=== PATIENT | female | born 1950 | race Caucasian/White ===

== ENCOUNTER 2018-12-22 05:43 | Emergency (ER) | payer BC ==
[~2018-12-22] VITALS: Ht 157.5 cm; Wt 49.0 kg
[2018-12-22 05:50] VITALS: BP 144/70
--- NOTE | 2018-12-22 05:50 | NUR ---
68 Y/O F PRESENTED TO ED WITH C/O GREEN DIARRHEA X2 DAYS. AAOX4. PER PT "I BELIEVE THIS DIARRHEA IS FROM A BACTERIAL INFECTION." NAUESA AND VOMITTING ONCE, 12/21/18. DENIES PAIN. PER PT TOOK IMMODIUM WITH NO RELIEF. BOWEL SOUNDS PRESENT X4 QUADRANTS. BEDRAIL X1 UP. BED IN LOWEST POSTION. ERMD NOTIFIED. WILL CONTINUE TO MONITOR.
--- NOTE | 2018-12-22 05:51 | NUR ---
PT AMBULATED TO ER BED 7
[2018-12-22] MEDS ORDERED: NACL 0.9% 1,000 ML IV ONE (06:10)
[2018-12-22] MEDS ORDERED: LOPERAMIDE 2 MG CAP PO ONE (06:10)
--- NOTE | 2018-12-22 06:15 | NUR ---
PT AMBULATED TO RESTROOM. STEADY GAIT.
--- NOTE | 2018-12-22 06:46 | NUR ---
ERMD AT BEDSIDE
[2018-12-22] MEDS ORDERED: DIPHENOXYLATE /ATROPINE 2.5 MG TAB PO ONE (06:50)
[2018-12-22] MEDS ORDERED: metroNIDAZOLE 250 MG TAB PO ONE (06:50)
[2018-12-22 06:58] LABS: BASOPHILS % (AUTO) 0.5 % (0.0-2.0); EOSINOPHILS # (AUTO) 0.1 K/uL (0-0.4); EOSINOPHILS % (AUTO) 1.7 % (0.0-4.0); HEMATOCRIT 40.5 % (36-48); HEMOGLOBIN 13.7 g/dL (12.0-16.0); LYMPHOCYTES # (AUTO) 0.8 K/uL (2.5-16.5); LYMPHOCYTES % (AUTO) 16.9 % (20.5-51.1); MEAN CORPUSCULAR HEMOGLOBIN 31 pg (27-31); MEAN CORPUSCULAR HGB CONC 34 g/dL (33-37); MEAN CORPUSCULAR VOLUME 92.4 fL (80-94); MONOCYTES # (AUTO) 0.5 K/uL (0.8-1.0); MONOCYTES % (AUTO) 10.6 % (1.7-9.3); NEUTROPHILS # (AUTO) 3.5 K/uL (1.8-7.7); NEUTROPHILS % (AUTO) 70.3 % (42.2-75.2); PLATELET COUNT (AUTO) 177 K/uL (140-450); RED BLOOD CELL COUNT(AUTO) 4.39 MIL/uL (4.20-5.40); RED CELL DISTRIBUTION WIDTH 12.9 % (11.6-13.7)
--- NOTE | 2018-12-22 07:19 | NUR ---
REPORT GIVEN TO GRACIA REAL. TRANSFER OF CARE AT THIS TIME.
[2018-12-22 07:37] LABS: ALBUMIN 3.5 g/dL (3.4-5.0); ANION GAP 16.4 (8-16); CARBON DIOXIDE 25.2 mmol/L (21-32); POTASSIUM 4.6 mmol/L (3.5-5.1); TOTAL BILIRUBIN 0.3 mg/dL (0.0-1.0)
[2018-12-22 07:49] VITALS: BP 133/71
--- NOTE | 2018-12-22 07:51 | NUR ---
Patient discharged with v/s stable. Written and verbal after care instructions given and explained. Patient alert, oriented and verbalized understanding of instructions. Ambulatory with steady gait. All questions addressed prior to discharge. ID band removed. Patient advised to follow up with PMD. Rx of LOMOTIL,FLAGYL given. Patient educated on indication of medication including possible reaction and side effects. Opportunity to ask questions provided and answered.
== END 2018-12-22 07:51 | disposition home or self-care (01) ==
LOC: MED 05:43
DX: A09 Infectious gastroenteritis and colitis, unspecified (principal)
CPT/HCPCS: 36415; 80053; 85025; 96360; 99283; J7030; 96361

== ENCOUNTER 2020-03-18 21:30 | Emergency (ER) | payer BC, OTHER ==
[~2020-03-18] VITALS: Ht 160 cm; Wt 49.4 kg
[2020-03-18 21:32] VITALS: BP 209/99
[2020-03-18] MEDS ORDERED: LORazepam 2 MG/ML VIAL IVP ONE (21:45)
[2020-03-18] MEDS ORDERED: cloNIDine 0.1 MG TAB PO ONE (21:45)
[2020-03-18 22:11] LABS: BASOPHILS # (AUTO) 0.1 K/uL (0.00-0.22); BASOPHILS % (AUTO) 0.7 % (0.0-2.0); EOSINOPHILS # (AUTO) 0.1 K/uL (0-0.4); EOSINOPHILS % (AUTO) 1.9 % (0.0-4.0); HEMATOCRIT 40.4 % (36-48); HEMOGLOBIN 13.6 g/dL (12.0-16.0); LYMPHOCYTES # (AUTO) 1.5 K/uL (2.5-16.5); LYMPHOCYTES % (AUTO) 20.6 % (20.5-51.1); MEAN CORPUSCULAR HEMOGLOBIN 31 pg (27-31); MEAN CORPUSCULAR HGB CONC 34 g/dL (33-37); MEAN CORPUSCULAR VOLUME 92.4 fL (80-94); MONOCYTES # (AUTO) 0.6 K/uL (0.8-1.0); MONOCYTES % (AUTO) 8.5 % (1.7-9.3); NEUTROPHILS % (AUTO) 68.3 % (42.2-75.2); PLATELET COUNT (AUTO) 177 K/uL (140-450); RED BLOOD CELL COUNT(AUTO) 4.37 MIL/uL (4.20-5.40); RED CELL DISTRIBUTION WIDTH 12.5 % (11.6-13.7); WHITE BLOOD COUNT (AUTO) 7.3 K/uL (4.8-10.8)
[2020-03-18 22:28] LABS: ANION GAP 13.8 (8-16); CARBON DIOXIDE 27.1 mmol/L (21-32); CREATININE 1.2 mg/dL (0.6-1.3); POTASSIUM 3.9 mmol/L (3.5-5.1); TOTAL BILIRUBIN 0.4 mg/dL (0.0-1.0)
[2020-03-19 00:23] VITALS: BP 129/94
== END 2020-03-19 00:23 | disposition home or self-care (01) ==
LOC: MED 21:30
DX: K90.0 Celiac disease (principal); E87.1 Hypo-osmolality and hyponatremia; N28.1 Cyst of kidney, acquired; I10 Essential (primary) hypertension
CPT/HCPCS: 36415; 70450; 71045; 74176; 80053; 83880; 84484; 85025; 96374; 99285; J2060; Q0092

== ENCOUNTER 2020-03-28 17:05 | Emergency (ER) | payer BC, OTHER ==
[~2020-03-28] VITALS: Ht 157.5 cm; Wt 46.7 kg
[2020-03-28 17:15] VITALS: BP 163/65
[2020-03-28] MEDS ORDERED: NACL 0.9% 1,000 ML IV ONE ×2 (17:20→17:50)
[2020-03-28] MEDS ORDERED: SIMETHICONE 40 MG/0.6 ML PO ONE (17:55)
[2020-03-28 17:59] LABS: BASOPHILS # (AUTO) 0.1 K/uL (0.00-0.22); BASOPHILS % (AUTO) 0.8 % (0.0-2.0); EOSINOPHILS # (AUTO) 0.1 K/uL (0-0.4); EOSINOPHILS % (AUTO) 2.1 % (0.0-4.0); HEMATOCRIT 38.7 % (36-48); HEMOGLOBIN 12.8 g/dL (12.0-16.0); LYMPHOCYTES # (AUTO) 1.6 K/uL (2.5-16.5); LYMPHOCYTES % (AUTO) 23.1 % (20.5-51.1); MEAN CORPUSCULAR HEMOGLOBIN 31 pg (27-31); MEAN CORPUSCULAR HGB CONC 33 g/dL (33-37); MEAN CORPUSCULAR VOLUME 93.2 fL (80-94); MONOCYTES # (AUTO) 0.6 K/uL (0.8-1.0); MONOCYTES % (AUTO) 8.3 % (1.7-9.3); NEUTROPHILS # (AUTO) 4.6 K/uL (1.8-7.7); NEUTROPHILS % (AUTO) 65.7 % (42.2-75.2); PLATELET COUNT (AUTO) 177 K/uL (140-450); RED BLOOD CELL COUNT(AUTO) 4.16 MIL/uL (4.20-5.40); RED CELL DISTRIBUTION WIDTH 12.6 % (11.6-13.7)
[2020-03-28 18:14] LABS: BILIRUBIN,URINE NEGATIVE (NEGATIVE); BLOOD, URINE NEGATIVE (NEGATIVE); LEUKOCYTE ESTERASE ,URINE NEGATIVE (NEGATIVE); NITRITE, URINE NEGATIVE (NEGATIVE); PH,URINE 5.5 (5.0-9.0); UGLUCOSE NEGATIVE (NEGATIVE)
[2020-03-28 18:15] LABS: APPEARANCE,URINE CLEAR (CLEAR); COLOR,URINE STRAW (YELLOW)
[2020-03-28 18:15] LABS: ALBUMIN 3.6 g/dL (3.4-5.0); ANION GAP 16.4 (8-16); CARBON DIOXIDE 22.4 mmol/L (21-32); POTASSIUM 3.8 mmol/L (3.5-5.1); TOTAL BILIRUBIN 0.3 mg/dL (0.0-1.0)
[2020-03-28 19:02] VITALS: BP 145/62
== END 2020-03-28 19:03 | disposition home or self-care (01) ==
LOC: MED 17:05
DX: E86.0 Dehydration (principal); R19.7 Diarrhea, unspecified; I10 Essential (primary) hypertension; K90.0 Celiac disease; N28.1 Cyst of kidney, acquired; Z91.018 Allergy to other foods; Z88.0 Allergy status to penicillin
CPT/HCPCS: 36415; 80053; 81003; 83690; 85025; 96360; 96361; 99283; J7030

== ENCOUNTER 2020-04-02 13:55 | Emergency (ER) | payer BC ==
[~2020-04-02] VITALS: Ht 170.2 cm; Wt 63.5 kg
--- NOTE | 2020-04-02 13:56 | NUR ---
PATIENT BIBA TO BED 7 AT THIS TIME.
[2020-04-02 14:01] VITALS: BP 167/87
--- NOTE | 2020-04-02 14:30 | NUR ---
PT ALERT AND AWAKE, BREATHING EVEN AND UNLABORED. PT ON PHONE
[2020-04-02 14:40] LABS: BASOPHILS % (AUTO) 0.3 % (0.0-2.0); EOSINOPHILS # (AUTO) 0.1 K/uL (0-0.4); HEMATOCRIT 40.6 % (36-48); HEMOGLOBIN 13.4 g/dL (12.0-16.0); LYMPHOCYTES # (AUTO) 1.5 K/uL (2.5-16.5); LYMPHOCYTES % (AUTO) 16.9 % (20.5-51.1); MEAN CORPUSCULAR HEMOGLOBIN 31 pg (27-31); MEAN CORPUSCULAR HGB CONC 33 g/dL (33-37); MEAN CORPUSCULAR VOLUME 92.8 fL (80-94); MONOCYTES # (AUTO) 0.5 K/uL (0.8-1.0); MONOCYTES % (AUTO) 5.5 % (1.7-9.3); NEUTROPHILS # (AUTO) 6.6 K/uL (1.8-7.7); NEUTROPHILS % (AUTO) 76.3 % (42.2-75.2); PLATELET COUNT (AUTO) 184 K/uL (140-450); RED BLOOD CELL COUNT(AUTO) 4.38 MIL/uL (4.20-5.40); RED CELL DISTRIBUTION WIDTH 12.9 % (11.6-13.7); WHITE BLOOD COUNT (AUTO) 8.7 K/uL (4.8-10.8)
[2020-04-02] MEDS: NACL 0.9% 1,000 ML IV ONE (15:02)
[2020-04-02] MEDS: KETOROLAC 30 MG/ML VIAL IVP ONE (15:03)
[2020-04-02] MEDS: ONDANSETRON 4 MG/2 ML VIAL IVP ONE (15:03)
[2020-04-02 15:19] LABS: ALBUMIN 3.7 g/dL (3.4-5.0); CARBON DIOXIDE 24.4 mmol/L (21-32); CREATININE 1.1 mg/dL (0.6-1.3); POTASSIUM 4.4 mmol/L (3.5-5.1); TOTAL BILIRUBIN 0.4 mg/dL (0.0-1.0)
[2020-04-02 15:22] LABS: COLOR,URINE YELLOW (YELLOW)
[2020-04-02 15:23] LABS: APPEARANCE,URINE HAZY (CLEAR); BILIRUBIN,URINE NEGATIVE (NEGATIVE); BLOOD, URINE NEGATIVE (NEGATIVE); LEUKOCYTE ESTERASE ,URINE 1+ (NEGATIVE); NITRITE, URINE NEGATIVE (NEGATIVE); UGLUCOSE NEGATIVE (NEGATIVE)
[2020-04-02 15:43] LABS: RBC,URINE NONE SEEN /HPF (0-5)
[2020-04-02 15:44] LABS: WBC,URINE 0-5 /HPF (0-5)
--- NOTE | 2020-04-02 15:48 | NUR ---
ERMD AT BEDSIDE OF PT
[2020-04-02] MEDS: HYDROcodone/APAP 5/325 MG 1 TAB TAB PO ONE (15:54)
[2020-04-02 16:04] VITALS: BP 164/66
--- NOTE | 2020-04-02 16:04 | NUR ---
Patient discharged with v/s stable. Written and verbal after care instructions about flank pain and uti given and explained. Patient alert, oriented and verbalized understanding of instructions. Ambulatory with steady gait. All questions addressed prior to discharge. ID band removed. Patient advised to follow up with PMD. Rx of norco, ciprofoxacin given. Patient educated on indication of medication including possible reaction and side effects. Opportunity to ask questions provided and answered.
== END 2020-04-02 16:04 | disposition home or self-care (01) ==
LOC: MED 13:55
DX: K90.0 Celiac disease (principal); N39.0 Urinary tract infection, site not specified; I10 Essential (primary) hypertension; Z88.0 Allergy status to penicillin; Z91.018 Allergy to other foods
CPT/HCPCS: 36415; 80053; 81001; 85025; 87086; 93005; 96361; 96374; 96375; 99284; J1885; J2405; J7030

== ENCOUNTER 2020-05-24 09:09 | Emergency (ER) | payer BC, OTHER ==
[~2020-05-24] VITALS: Ht 160 cm; Wt 47.6 kg
[2020-05-24 09:12] VITALS: BP 121/52
--- NOTE | 2020-05-24 09:17 | NUR ---
69 YO FEMALE BIBA AMBULANCE CO ATIVAN WITHDRAWL. STATES THAT SHE WAS GIVEN ATIVAN DT HAVING A CYST ON HER KIDNEY DRAINED. C/O SHAKINESS, NAUSEA. LAST TOOK AN ATIVAN LAST NIGHT. PMH- HTN ALLERGIES- GLUTEN
--- NOTE | 2020-05-24 09:22 | NUR ---
EKG COMPLETED PER ORDERS
--- NOTE | 2020-05-24 09:31 | NUR ---
RAD AT BEDSIDE
--- NOTE | 2020-05-24 09:37 | NUR ---
LAB AT BEDSIDE
[2020-05-24 10:03] LABS: BASOPHILS % (AUTO) 0.8 % (0.0-2.0); EOSINOPHILS # (AUTO) 0.1 K/uL (0-0.4); EOSINOPHILS % (AUTO) 2.2 % (0.0-4.0); HEMATOCRIT 37.6 % (36-48); HEMOGLOBIN 12.6 g/dL (12.0-16.0); LYMPHOCYTES # (AUTO) 1.1 K/uL (2.5-16.5); LYMPHOCYTES % (AUTO) 21.5 % (20.5-51.1); MEAN CORPUSCULAR HEMOGLOBIN 31 pg (27-31); MEAN CORPUSCULAR HGB CONC 34 g/dL (33-37); MEAN CORPUSCULAR VOLUME 93.3 fL (80-94); MONOCYTES # (AUTO) 0.3 K/uL (0.8-1.0); MONOCYTES % (AUTO) 6.5 % (1.7-9.3); NEUTROPHILS # (AUTO) 3.5 K/uL (1.8-7.7); PLATELET COUNT (AUTO) 167 K/uL (140-450); RED BLOOD CELL COUNT(AUTO) 4.03 MIL/uL (4.20-5.40); RED CELL DISTRIBUTION WIDTH 12.9 % (11.6-13.7)
[2020-05-24 10:19] LABS: ALBUMIN 3.4 g/dL (3.4-5.0); ANION GAP 9.7 (8-16); CARBON DIOXIDE 28.8 mmol/L (21-32); POTASSIUM 4.5 mmol/L (3.5-5.1); TOTAL BILIRUBIN 0.6 mg/dL (0.0-1.0)
--- NOTE | 2020-05-24 11:07 | NUR ---
PT LEFT WITHOUT DC INSTRUCTIONS.
== END 2020-05-24 11:07 | disposition home or self-care (01) ==
LOC: MED 09:09
DX: F41.9 Anxiety disorder, unspecified (principal); K90.41 Non-celiac gluten sensitivity; I10 Essential (primary) hypertension; K21.9 Gastro-esophageal reflux disease without esophagitis; N28.9 Disorder of kidney and ureter, unspecified; Z88.0 Allergy status to penicillin; Z88.6 Allergy status to analgesic agent
CPT/HCPCS: 36415; 71045; 80053; 84484; 85025; 93005; 99285; Q0092

== ENCOUNTER 2021-01-29 14:04 | Emergency (ER) | payer BC, OTHER ==
[~2021-01-29] VITALS: Ht 157.5 cm; Wt 42.6 kg
[2021-01-29 14:34] VITALS: BP 168/97
--- NOTE | 2021-01-29 15:34 | NUR ---
PT SENT TO LOBBY TO WAIT FOR AVAILABLE BED.
[2021-01-29 15:37] LABS: BASOPHILS % (AUTO) 0.6 % (0.0-2.0); EOSINOPHILS # (AUTO) 0.1 K/uL (0-0.4); EOSINOPHILS % (AUTO) 1.1 % (0.0-4.0); LYMPHOCYTES # (AUTO) 1.5 K/uL (2.5-16.5); MEAN CORPUSCULAR HEMOGLOBIN 32 pg (27-31); MEAN CORPUSCULAR HGB CONC 33 g/dL (33-37); MEAN CORPUSCULAR VOLUME 94.4 fL (80-94); MONOCYTES # (AUTO) 0.4 K/uL (0.8-1.0); MONOCYTES % (AUTO) 5.2 % (1.7-9.3); NEUTROPHILS # (AUTO) 6.1 K/uL (1.8-7.7); NEUTROPHILS % (AUTO) 75.1 % (42.2-75.2); PLATELET COUNT (AUTO) 182 K/uL (140-450); RED BLOOD CELL COUNT(AUTO) 4.45 MIL/uL (4.20-5.40); RED CELL DISTRIBUTION WIDTH 12.5 % (11.6-13.7); WHITE BLOOD COUNT (AUTO) 8.1 K/uL (4.8-10.8)
[2021-01-29 15:59] LABS: ANION GAP 9.5 (8-16); CARBON DIOXIDE 28.9 mmol/L (21-32); CREATININE 1.1 mg/dL (0.6-1.3); POTASSIUM 5.4 mmol/L (3.5-5.1)
--- NOTE | 2021-01-29 16:10 | NUR ---
PT W/C ASSISTED TO BED 7.
[2021-01-29] MEDS ORDERED: NACL 0.9% 1,000 ML IV ONE (16:15)
--- NOTE | 2021-01-29 16:25 | NUR ---
PATIENT PRESENTS TO ED WITH C/O URINARY FREQ WITH BURNING ITCYING AND BILATERAL FLANK PAIN . PT STATES PAIN 9/10, STATEDD HAS HAD PAINFOR 1.5 YEARS, WITH WEAK , FATIGUE AND NASUEA . ; SKIN IS PINK/WARM/DRY; AAOX4; LUNGS CLEAR BL; HR EVEN AND REGULAR; PT DENIES ANY FEVER, CP, SOB, OR COUGH AT THIS TIME; PATIENT STATES PAIN OF 9/10 AT THIS TIME; VSS; PATIENT POSITIONED FOR COMFORT; HOB ELEVATED; BEDRAILS UP X2; BED DOWN. ER MD MADE AWARE OF PT STATUS.
[2021-01-29 17:32] LABS: APPEARANCE,URINE CLEAR (CLEAR); BILIRUBIN,URINE NEGATIVE (NEGATIVE); BLOOD, URINE NEGATIVE (NEGATIVE); COLOR,URINE YELLOW (YELLOW); LEUKOCYTE ESTERASE ,URINE NEGATIVE (NEGATIVE); NITRITE, URINE NEGATIVE (NEGATIVE); PH,URINE 5.5 (5.0-9.0); UGLUCOSE NEGATIVE (NEGATIVE)
[2021-01-29] MEDS ORDERED: AMLO-271 PO (18:21)
[2021-01-29] MEDS ORDERED: ONDA-24 PO (18:21)
[2021-01-29 18:24] VITALS: BP 175/77
--- NOTE | 2021-01-29 18:25 | NUR ---
Patient discharged with v/s stable. Written and verbal after care instructions given and explained. Patient alert, oriented and verbalized understanding of instructions. Ambulatory with steady gait. All questions addressed prior to discharge. ID band removed. Patient advised to follow up with PMD. Rx of AMLODIPINE, ZOFRAN given. Patient educated on indication of medication including possible reaction and side effects. Opportunity to ask questions provided and answered.
== END 2021-01-29 18:25 | disposition home or self-care (01) ==
LOC: MED 14:04
DX: K59.00 Constipation, unspecified (principal); E86.0 Dehydration; R35.0 Frequency of micturition; R30.0 Dysuria; R10.30 Lower abdominal pain, unspecified; K21.9 Gastro-esophageal reflux disease without esophagitis; I10 Essential (primary) hypertension; Z79.899 Other long term (current) drug therapy; Z88.0 Allergy status to penicillin; Z88.5 Allergy status to narcotic agent; Z88.8 Allergy status to other drugs, medicaments and biological substances
CPT/HCPCS: 36415; 74018; 80048; 81003; 85025; 87086; 99284; J7030; 81002